=== PATIENT | male | born 1995 | race Caucasian/White ===

== ENCOUNTER 2017-02-08 10:30 | Emergency (ER) | payer BC | END 2017-02-08 11:12 | disposition home or self-care (01) | LOC: NAV ERS 10:30 | DX: S39.011A Strain of muscle, fascia and tendon of abdomen, initial encounter (principal); S39.012A Strain of muscle, fascia and tendon of lower back, initial encounter; F41.9 Anxiety disorder, unspecified; F32.9 Major depressive disorder, single episode, unspecified; F17.210 Nicotine dependence, cigarettes, uncomplicated; V49.9XXA Car occupant (driver) (passenger) injured in unspecified traffic accident, initial encounter ==

== ENCOUNTER 2017-11-02 22:41 | Emergency (ER) | payer BC ==
[2017-11-02] MEDS ORDERED: Ketorolac Tromethamine 60 MG/2 ML VIAL ONE (23:11)
[2017-11-02 23:19] LABS: Bilirubin Negative (Negative); Blood, Urine Negative (Negative); Clarity Clear (Clear); Glucose, Urine (Dipstick) Negative (Negative); Leukocyte Negative (Negative); Nitrite Negative (Negative); Protein, Urine (Dipstick) Negative (Neg-Trace); Specific Gravity, Urine 1.025 (1.005-1.030); pH, Urine 5.5 (5.0-9.0)
--- NOTE | 2017-11-02 23:36 | RAD ---
PA VIEW OF THE CHEST WITH TWO VIEWS OF THE LEFT CHEST WALL 11/02/17 COMPARISON: None. INDICATION: History of left sided flank pain after fall 5 to 8 feet off of a ladder. FINDINGS: The lungs are clear. No pleural effusion or pneumothorax is evident. There is a minimally displaced a nterolateral left 10th rib fracture. IMPRESSION: Minimally displaced anterolateral left 10th rib fracture. POS: [facility]
== END 2017-11-02 23:49 | disposition home or self-care (01) ==
LOC: NAV ERS 22:41
DX: S22.32XA Fracture of one rib, left side, initial encounter for closed fracture (principal); F41.9 Anxiety disorder, unspecified; F31.9 Bipolar disorder, unspecified; F17.210 Nicotine dependence, cigarettes, uncomplicated; W11.XXXA Fall on and from ladder, initial encounter
CPT/HCPCS: 81003; 96372; J1885

== ENCOUNTER 2018-04-19 21:30 | Emergency (ER) | payer BC ==
[2018-04-19] MEDS ORDERED: diphenhydrAMINE 50 MG/ML VIAL ONE (21:57)
[2018-04-19] MEDS ORDERED: Metoclopramide HCl 10 MG/2 ML VIAL ONE ×2 (21:57→23:07)
[2018-04-19] MEDS ORDERED: Sodium Chloride 0.9% 1,000 ML ONE (21:57)
[2018-04-19] MEDS ORDERED: Magnesium Sulfate 2 GM/NS 0.9% 50 ML BAG ONE (23:15)
[2018-04-19] MEDS ORDERED: methylPREDNISolone Sod Succ/PF 125 MG/2 ML VIAL ONE (23:15)
--- NOTE | 2018-04-19 23:31 | CT ---
CT OF THE HEAD WITHOUT CONTRAST: 04/19/18 COMPARISON: None. HISTORY: Headache, pain. TECHNIQUE: Serial axial CT imaging obtained at 5 mm intervals from vertex through skull base without contrast. FINDINGS: The imaged paranasal sinuses and mastoid air cells are well aerated. No displaced calvarial fracture noted. No intracranial hemorrhage, midline shift, mass effect or ventricular enlargement. IMPRESSION: No acute findings. POS: [facility]
== END 2018-04-20 00:13 | disposition home or self-care (01) ==
LOC: NAV ERS 21:30
DX: R51 Headache (principal); F41.9 Anxiety disorder, unspecified; F31.9 Bipolar disorder, unspecified; F17.210 Nicotine dependence, cigarettes, uncomplicated
CPT/HCPCS: 70450; 96365; 96367; 96375; 96376; J1200; J2765; J2930; J3475; J7050